=== PATIENT | female | born 1945 | race Caucasian/White ===

== ENCOUNTER 2016-09-10 23:45 | Inpatient (IN) | payer MEDICARE, MEDICAID ==
[~2016-09-10] VITALS: Ht 152.4 cm; Wt 56.8 kg
[2016-09-11] MEDS ORDERED: SODIUM CHLORIDE FLUSH 10ML SYR IVF ONE (00:30)
[2016-09-11] MEDS ORDERED: METF500T4 PO (00:37)
[2016-09-11] MEDS ORDERED: TELM40TA PO (00:38)
[2016-09-11] MEDS ORDERED: ATOR20TA PO (00:38)
[2016-09-11 01:00] LABS: ASPARTATE AMINO TRANSFERASE 47 U/L (15-37); BLOOD UREA NITROGEN 45 mg/dL (7-18)
[2016-09-11 01:17] LABS: IS PT STATUS REG ER OR PRE ER? YES
[2016-09-11] MEDS ORDERED: ENALAPRILAT 1.25 MG/ML, 2ML IVPush PRN (03:30)
[2016-09-11] MEDS ORDERED: hydrALAzine 20 MG/ML, 1ML IVPush PRN (03:30)
[2016-09-11] MEDS ORDERED: HEPARIN 5,000 UNITS/ML, 1ML ONE (04:04)
[2016-09-11] MEDS: HEPARIN 5,000 UNITS/ML, 1ML SQ SCH ×2 (04:07→16:03)
[2016-09-11 04:31] LABS: HEPATITIS C VIRUS ANTIBODY Nonreactive (Nonreactive)
[2016-09-11 06:29] LABS: ASPARTATE AMINO TRANSFERASE 42 U/L (15-37); BLOOD UREA NITROGEN 42 mg/dL (7-18); TOTAL IRON BINDING CAPACITY 236 mcg/dL (250-450)
[2016-09-11] MEDS: INSULIN ASPART 100 UNITS/ML, PEN SQ-INSULIN SCH ×4 (07:00→20:34)
[2016-09-11 08:20] VITALS: BP 167/62
[2016-09-11 08:55] LABS: PATH.CAST-FLAG NOT PRESENT; SPERM-FLAG NOT PRESENT; SRC-FLAG NOT PRESENT; XTAL-FLAG NOT PRESENT; YLC-FLAG NOT PRESENT
[2016-09-11 09:20] VITALS: BP 167/62
[2016-09-11] MEDS: VALSARTAN 80 MG TABLET PO SCH (10:48)
[2016-09-11] MEDS: SENNA/DOCUSATE TABLET PO SCH (10:49)
[2016-09-11 12:20] LABS: IS PT STATUS REG ER OR PRE ER? NO
[2016-09-11] MEDS ORDERED: REGADENOSON 0.4 MG/5 ML SYRINGE ONE (13:31)
[2016-09-11 15:08] VITALS: BP 161/68
[2016-09-11] MEDS: ATORVASTATIN 20 MG TABLET PO SCH (20:34)
[2016-09-11 20:40] VITALS: BP 180/72
[2016-09-12 02:00] VITALS: BP 141/62
[2016-09-12] MEDS: HEPARIN 5,000 UNITS/ML, 1ML SQ SCH ×2 (03:37→16:44)
[2016-09-12 06:53] LABS: ASPARTATE AMINO TRANSFERASE 32 U/L (15-37); BLOOD UREA NITROGEN 39 mg/dL (7-18)
[2016-09-12 07:20] VITALS: BP_SYST 192; BP_DIAS 61; BP_DIAS 69
[2016-09-12 08:06] VITALS: BP 173/89
[2016-09-12] MEDS: INSULIN ASPART 100 UNITS/ML, PEN SQ-INSULIN SCH ×4 (08:13→20:18)
[2016-09-12] MEDS: VALSARTAN 80 MG TABLET PO SCH (08:17)
[2016-09-12] MEDS: SENNA/DOCUSATE TABLET PO SCH (08:17)
[2016-09-12 13:54] VITALS: BP 137/67
[2016-09-12] MEDS ORDERED: VALSARTAN 80 MG TABLET PO SCH (16:19)
[2016-09-12 17:30] LABS: BLOOD UREA NITROGEN 39 mg/dL (7-18)
[2016-09-12 17:35] LABS: ASPARTATE AMINO TRANSFERASE 39 U/L (15-37)
[2016-09-12 19:57] VITALS: BP 174/74
[2016-09-12] MEDS: ATORVASTATIN 20 MG TABLET PO SCH (20:18)
[2016-09-13 01:35] VITALS: BP 125/70
[2016-09-13 06:07] LABS: BLOOD UREA NITROGEN 44 mg/dL (7-18)
[2016-09-13] MEDS: HEPARIN 5,000 UNITS/ML, 1ML SQ SCH ×2 (06:08→16:20)
[2016-09-13] MEDS: INSULIN ASPART 100 UNITS/ML, PEN SQ-INSULIN SCH ×4 (07:16→21:00)
[2016-09-13 07:45] VITALS: BP 178/78
[2016-09-13] MEDS: SODIUM CHLORIDE 0.9% 1,000 ML IV SCH (09:05)
[2016-09-13] MEDS: SENNA/DOCUSATE TABLET PO SCH (09:05)
[2016-09-13] MEDS: VALSARTAN 160 MG TABLET PO SCH (09:05)
[2016-09-13] MEDS ORDERED: MIDAZOLAM 1 MG/ML, 5ML ONE (10:17)
[2016-09-13] MEDS ORDERED: CEFAZOLIN PMX 1GM/50ML 50 ML ONE (10:18)
[2016-09-13] MEDS ORDERED: FENTANYL PF 100 MCG/2ML ONE (10:18)
[2016-09-13] MEDS ORDERED: CEFAZOLIN 1,000 MG ONE (10:18)
[2016-09-13] MEDS ORDERED: LIDOCAINE 2%, 20ML ONE (10:45)
[2016-09-13] MEDS ORDERED: HYDROcodone/APAP 5/325 TABLET PO PRN (11:30)
[2016-09-13] MEDS: AMLODIPINE 5 MG TABLET PO SCH (12:05)
[2016-09-13 13:49] VITALS: BP 151/77
[2016-09-13] MEDS: CEFAZOLIN PMX 1GM/50ML 50 ML IVPB SCH ×2 (16:13→20:58)
[2016-09-13 18:53] VITALS: BP 159/72
[2016-09-13] MEDS: ATORVASTATIN 20 MG TABLET PO SCH (20:57)
[2016-09-13] MEDS: SODIUM CHLORIDE FLUSH 10ML SYR IVF SCH (20:58)
[2016-09-14] MEDS: SODIUM CHLORIDE 0.9% 1,000 ML IV SCH ×2 (01:27→10:00)
[2016-09-14 02:39] VITALS: BP 165/81
[2016-09-14] MEDS: HEPARIN 5,000 UNITS/ML, 1ML SQ SCH (05:00)
[2016-09-14 05:41] LABS: BLOOD UREA NITROGEN 39 mg/dL (7-18)
[2016-09-14 05:48] LABS: ASPARTATE AMINO TRANSFERASE 39 U/L (15-37)
[2016-09-14 06:52] VITALS: BP 176/78
[2016-09-14] MEDS: INSULIN ASPART 100 UNITS/ML, PEN SQ-INSULIN SCH ×2 (07:00→11:00)
[2016-09-14] MEDS: SENNA/DOCUSATE TABLET PO SCH (09:00)
[2016-09-14] MEDS: AMLODIPINE 5 MG TABLET PO SCH (09:00)
[2016-09-14] MEDS: SODIUM CHLORIDE FLUSH 10ML SYR IVF SCH (09:19)
[2016-09-14] MEDS: VALSARTAN 160 MG TABLET PO SCH (09:20)
[2016-09-14] MEDS ORDERED: VALS160T3 PO (11:45)
[2016-09-14] MEDS ORDERED: AMLO5TAB2 PO ×2 (11:45→13:19)
[2016-09-14] MEDS ORDERED: AMLO1POW2 PO (12:58)
[2016-09-14] MEDS ORDERED: AMLODIPINE 5 MG TABLET PO SCH (21:00)
== END 2016-09-14 13:44 | disposition home or self-care (01) | DRG 242 ==
LOC: ED 23:59 → EDIP 09-11 02:01 → 4WST 09-11 09:19 → 5SO 09-11 17:54
PROVIDERS: ADMIT Family Medicine; ATTEND Family Medicine
PROC: 0JH606Z Insertion of Pacemaker, Dual Chamber into Chest Subcutaneous Tissue and Fascia, Open Approach (ICD-10-PCS; principal; 2016-09-13)
PROC: 02H63JZ Insertion of Pacemaker Lead into Right Atrium, Percutaneous Approach (ICD-10-PCS; 2016-09-13)
PROC: 02HK3JZ Insertion of Pacemaker Lead into Right Ventricle, Percutaneous Approach (ICD-10-PCS; 2016-09-13)
DX: I49.5 Sick sinus syndrome (principal); I46.9 Cardiac arrest, cause unspecified; I13.0 Hypertensive heart and chronic kidney disease with heart failure and stage 1 through stage 4 chronic kidney disease, or unspecified chronic kidney disease; N17.9 Acute kidney failure, unspecified; M84.40XA Pathological fracture, unspecified site, initial encounter for fracture; D64.9 Anemia, unspecified; I16.0 Hypertensive urgency; K59.00 Constipation, unspecified; E11.22 Type 2 diabetes mellitus with diabetic chronic kidney disease; E78.00 Pure hypercholesterolemia, unspecified; E78.5 Hyperlipidemia, unspecified; I35.0 Nonrheumatic aortic (valve) stenosis; I50.9 Heart failure, unspecified; N18.3 Chronic kidney disease, stage 3 (moderate); Z79.84 Long term (current) use of oral hypoglycemic drugs; Z87.891 Personal history of nicotine dependence; Z98.51 Tubal ligation status; Z79.899 Other long term (current) drug therapy
CPT/HCPCS: 33208; 36415; 71010; 71020; 78452; 80048; 80053; 80061; 81001; 82607; 82746; 82962; 83540; 83550; 83735; 83880; 84443; 84484; 85025; 85379; 85610; 85730; 86803; 87340; 93005; 93017; 93306; 93970; 99156; 99285; C1779; C1785; C1892; J0690; J1644; J1815; J2250; J2785; J3010; J3490; A9502; C9898; J0360; J7030